=== PATIENT | male | born 1995 | race Caucasian/White ===

== ENCOUNTER 2016-12-09 03:21 | Emergency (ER) | payer OTHER ==
[~2016-12-09] VITALS: Ht 175.3 cm; Wt 54.5 kg
[2016-12-09 03:25] VITALS: TEMP 36.7; Ht 175.3 cm; Wt 54.5 kg
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
[2016-12-09] MEDS ORDERED: LIDOCAINE/EPINEPHRINE 1% 20 ML VIAL INFIL ONE (04:00)
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
[2016-12-09 06:48] VITALS: BP 145/85; PULSE 80; O2SAT 97
== END 2016-12-09 06:48 | disposition home or self-care (01) ==
LOC: C.EDB 03:24
DX: S01.01XA Laceration without foreign body of scalp, initial encounter (principal); V47.5XXA Car driver injured in collision with fixed or stationary object in traffic accident, initial encounter; F17.210 Nicotine dependence, cigarettes, uncomplicated